=== PATIENT | female | born 1975 | race Caucasian/White ===

== ENCOUNTER 2017-02-22 07:02 | Day surgery (SDC) | payer OTHER ==
[~2017-02-22] VITALS: Ht 162.6 cm; Wt 137.0 kg
[~2017-02-22 07:02] MED LIST: CYCLOBENZAPRINE10 MG PO; IBUPROFEN; IBUPROFEN600 MG PO
[2017-02-22 09:31] VITALS: BP 139/60
== END 2017-02-22 09:10 | disposition home or self-care (01) | DRG 552 ==
LOC: ORM 07:02
PROVIDERS: ATTEND Anesthesiology Pain Medicine
PROC: 3E0U33Z Introduction of Anti-inflammatory into Joints, Percutaneous Approach (ICD-10-PCS; principal; 2017-02-22)
PROC: 3E0U3BZ Introduction of Anesthetic Agent into Joints, Percutaneous Approach (ICD-10-PCS; 2017-02-22)
DX: M46.1 Sacroiliitis, not elsewhere classified (principal); M54.5 Low back pain